=== PATIENT | male | born 1950 | race Hispanic/Latino ===

== ENCOUNTER 2016-08-03 07:49 | Day surgery (SDC) | payer BC ==
[2016-08-03] MEDS ORDERED: Propofol 10 mg/ml Inj (20 ML) ONE ×3 (09:30→10:07)
[2016-08-03] MEDS ORDERED: Lactated Ringer's 500 ML IV ONE (09:38)
[2016-08-03 11:16] VITALS: RESP 15; TEMP 97.6
[2016-08-03 11:30] VITALS: O2SAT 100
[2016-08-03 11:34] VITALS: BP 157/85; PULSE 72
== END 2016-08-03 11:45 | disposition home or self-care (01) ==
LOC: C.ENDO 07:49
PROVIDERS: ATTEND Internal Medicine Gastroenterology
DX: Z12.11 Encounter for screening for malignant neoplasm of colon (principal); D12.2 Benign neoplasm of ascending colon; D12.4 Benign neoplasm of descending colon; K64.8 Other hemorrhoids
CPT/HCPCS: 45385; 88305; J2704; J7120